=== PATIENT | female | born 1995 | race Hispanic/Latino ===

== ENCOUNTER 2018-10-15 23:20 | Emergency (ER) | payer SELFPAY ==
[2018-10-16] MEDS ORDERED: IBUPROFEN 600 MG TABLET ONE (00:44)
== END 2018-10-16 01:41 | disposition home or self-care (01) ==
LOC: EDH 23:20
DX: S83.92XA Sprain of unspecified site of left knee, initial encounter (principal); X50.1XXA Overexertion from prolonged static or awkward postures, initial encounter; Y93.89 Activity, other specified; Y92.89 Other specified places as the place of occurrence of the external cause; Y99.8 Other external cause status
CPT/HCPCS: 29505; 73562

== ENCOUNTER 2024-08-10 00:50 | Emergency (ER) | payer BC ==
[~2024-08-10] VITALS: Ht 152.4 cm; Wt 86.2 kg
--- NOTE | 2024-08-10 01:06 | ERN ---
ED Note History of Present Illness Stated Complaint: POKED BY SILVIA HOOK Chief Complaint: Other Problems Time Seen by MD: 00:52 Time Seen by Midlevel: 00:52 Dictation: The patient is a 29-year-old female with no significant medical history who presents to the emergency department after accidentally being poked by a fish hook around 7:00 p.m. last night. Patient reports the hook did not go all the way in and just caused a little puncture wound on her right index finger in a little abrasion on her right thumb. Unknown last Tdap. Allergies: Coded Allergies: No Known Allergies (Unverified Allergy, Unknown, 08/10/24) Past Medical History Past Medical History: No Pertinent History Surgical History: Other Surgical History Other: LEFT KNEE LMP: Jul 17, 2024 RN Note Reviewed/Agreed w/PFSH: Yes Review of System Dictation Constitutional: Negative for fever,chills, and weight loss Eyes: Negative for injury, pain,redness, and discharge ENT: Negative for injury,pain or swelling Cardiovascular: Negative for chest pain, palpitations, and edema Respiratory: Negative for shortness of breath, cough, and wheezing, Abdomen/GI: Negative for abdominal pain, nausea, vomiting, diarrhea, and constipation Back: Negative for injury and pain : Negative for injury, bleeding and discharge MS/Extremity: Negative for injury and deformity Skin: Negative for rash, and discoloration positive for abrasion to right hand Neuro: Negative for headache, weakness, numbness, tingling, and seizure Psych: Negative for suicide ideation, homicidal ideation, and hallucinations Initial Vital Sign VS Vital Signs Date Time Temp Pulse Resp B/P (MAP) Pulse Ox O2 Delivery O2 Flow Rate FiO2 08/10/24 00:51 98.2 89 20 128/89 100 08/10/24 01:23 Room Air* 0 21 Physical Exam Dictation Vital Signs reviewed General Appearance: Alert, oriented x 3, no acute distress, well developed, nourished. Head and Face: non-traumatic. Eyes: PERRL, pink conjunctivas, eyelid no trauma, anterior chamber with arcus senilis. Ears: Pinnas intact and no signs of trauma or erythema ear canals clear and no discharge TM no erythema Nose: No discharge, no bleeding. Oropharynx: Mouth normal, tongue pink. pharynx clear,no erythema, tonsils no exudates, no abscesses noted, mucous membrane moist Neck: Supple, non-tender, no thyromegaly, no masses, no JVD, no bruits Breast:Deferred Chest:No tenderness, no crepitus, no paradoxical movement, no retractions Lungs:Clear, well-ventilated, symmetric, no rales, no wheezing, no rhonchi, no stridor, good breath sounds bilaterally Heart: Regular rate, regular rhythm, no murmur, no gallops Vascular: no peripheral edema, Abdomen: Soft, positive bowel sounds, nondistended, no guarding, nontender, no rebound, no masses no hepatomegaly, no splenomegaly, no Ann's sign, no hernias. Rectal: Deferred Genital: Deferred Neurological: Normal speech, motor function intact, sensory function intact Musculoskeletal: Neck nontender, full range of motion, back nontender, full range of motion, Extremities: nontender, full range of motion Skin: Color pink, dry, no turgor, no rash, no lacerations, , no contusions. 1Cm abrasion to right thumb, puncture wound to right index finger, no active bleeding Lymphatic: Deferred Results (Laboratory/Radiology) Labs Reviewed?: Yes ED Course ED Course Orders Procedure Category Date Status Time Diph,Pertuss(Acell),Tet PHA 08/10/24 Complete Vac/Pf (Tdap) 01:30 Current Medications Medications (Trade) Dose Ordered Sig/Jose Antonio Route PRN Reason Start Time Stop Time Status Last Admin Dose Admin Diphtheria/ Tetanus/Acell Pertussis (Tdap) 0.5 ml ONCE ONCE IM 08/10/24 01:30 08/10/24 01:31 DC 08/10/24 01:17 Vital Signs Date Time Temp Pulse Resp B/P (MAP) Pulse Ox O2 Delivery O2 Flow Rate FiO2 08/10/24 01:23 98.2 85 20 125/65 100 Room Air* 0 21 08/10/24 00:51 98.2 89 20 128/89 100 Medical Decision Making MDM The patient is a 29-year-old female with no significant medical history who presents to the emergency department after accidentally being poked by a fish hook around 7:00 p.m. last night. Patient reports the hook did not go all the way in and just caused a little puncture wound on her right index finger in a little abrasion on her right thumb. Unknown last Tdap. Patient with a minimal puncture wound to distal right finger, small superficial abrasion to right thumb. No active bleeding patient will be updated for Tdap him instructed to follow up with PCP. Differential diagnosis: Abrasion, cellulitis, puncture wound Need for hospitalization: Patient does not meet criteria for hospitalization. There are no social concerns with this patient. DX & DISP Disposition: Discharge Departure Impression: Primary Impression: Abrasion Additional Impressions: Abrasion of thumb, right, Puncture wound of finger Condition: Stable Additional Instructions: Please follow up with the primary doctor in 1-2 days. Please keep your wound clean and dry. If any signs of infection develop like fevers, increased redness, abnormal drainage please follow up with your primary doctor. FOLLOW-UP WITH PRIMARY CARE PROVIDER IN 1 TO 2 DAYS. TAKE MEDICATIONS DIRECTED HERE IN THE EMERGENCY ROOM. OKAY TO CONTINUE HOME MEDICATIONS UNLESS OTHERWISE DISCUSSED DURING YOUR VISIT IN THE EMERGENCY ROOM TODAY. RETURN TO YOUR NEAREST EMERGENCY ROOM IF SYMPTOMS WORSEN OR IF THERE IS NO IMPROVEMENT. CALL 911 IF YOU NEED IMMEDIATE ASSISTANCE. TAKE TYLENOL OR MOTRIN [id number] NEEDED AND IF NO CONTRAINDICATIONS ARE PRESENT. INCREASE ORAL HYDRATION. A WOUND CULTURE OR URINE CULTURE WAS ORDERED HERE IN THE EMERGENCY ROOM DEPARTMENT PLEASE FOLLOW-UP WITH PRIMARY CARE PROVIDER AND ADVISE THEM TO GET REPEAT PORTS FROM OUR FACILITY. IF YOU HAD ANY DAVID WRAP/SPLINTS THAT WERE APPLIED HERE, PLEASE DO NOT REMOVE THEM UNTIL YOU SEE YOUR PRIMARY CARE OR SPECIALTY. Referrals: SELF,REFERRAL (PCP) Time of Disposition: 01:05 I have reviewed the case, and I agree with, Diagnosis and Plan CEHSTER VERAS Aug 10, 2024 01:06 ABIGAIL ARMENTA DO Aug 10, 2024 02:26
[2024-08-10] MEDS: DIPH,PERTUSS(ACELL),TET VAC/PF 0.5 ML VIAL IM ONE (01:17)
[2024-08-10 01:23] VITALS: BP 125/65; PULSE 85; RESP 20; TEMP 98.2; O2SAT 100
== END 2024-08-10 01:23 | disposition home or self-care (01) ==
LOC: EDH 00:50
DX: S61.230A Puncture wound without foreign body of right index finger without damage to nail, initial encounter (principal); S60.311A Abrasion of right thumb, initial encounter; W45.8XXA Other foreign body or object entering through skin, initial encounter; Y93.89 Activity, other specified; Y92.89 Other specified places as the place of occurrence of the external cause; Y99.8 Other external cause status
CPT/HCPCS: 90471; 90715; 99284

== ENCOUNTER 2025-05-09 08:21 | Emergency (ER) | payer BC ==
[~2025-05-09] VITALS: Ht 149.9 cm; Wt 86.2 kg
[2025-05-09 09:21] LABS: IMMATURE GRANULOCYTE ABSOLUTE 0.09 K/uL (0-1); NUCLEATED RED BLOOD CELLS 0.0 % (0.0-0.19); PLATELET COUNT (AUTO) 330 K/uL (130-400); RED BLOOD CELL COUNT(AUTO) 4.20 MIL/uL (4.00-5.50); RED CELL DISTRIBUTION WIDTH 13.5 % (11.0-15.5); WHITE BLOOD COUNT (AUTO) 13.1 K/uL (4.8-10.8)
[2025-05-09 09:31] LABS: CREATININE 0.5 mg/dL (0.5-1.0); GLOMERULAR FILTR. RATE CALC 128.0 mL/min (>90); GLUCOSE,RANDOM 117.0 mg/dL (70-105); SODIUM SERUM 138.0 mmol/L (136-145); UREA NITROGEN, BLOOD 6.0 mg/dL (7-18)
--- NOTE | 2025-05-09 09:44 | EKG ---
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
[2025-05-09 09:50] VITALS: BP 134/86; PULSE 85; RESP 17; TEMP 98.1; O2SAT 100
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
--- NOTE | 2025-05-09 10:48 | HMCIMG ---
EXAM: CR Chest, 1 View. CLINICAL HISTORY: cp COMPARISON: None provided. FINDINGS: LUNGS: There is no mass, infiltrate, or acute pulmonary abnormality. PLEURAL SPACES: No evidence of pleural effusion or pneumothorax. MEDIASTINUM: Cardiac size and mediastinal contours within normal limits. BONES: No acute osseous abnormality. IMPRESSION: No acute cardiopulmonary pathology is evident. /[place]
== END 2025-05-09 11:16 | disposition home or self-care (01) ==
LOC: EDH 08:21
DX: R07.89 Other chest pain (principal)
CPT/HCPCS: 36415; 71045; 80048; 84484; 84703; 85025; 93005; 99284